=== PATIENT | female | born 1965 | race Caucasian/White ===

== ENCOUNTER 2018-11-28 12:26 | Emergency (ER) | payer BC ==
[2018-11-28 13:40] LABS: ANION GAP 9.9 mmol/L (10-20); CHLORIDE,CL 107 mmol/L (98-107); SODIUM,NA 142 mmol/L (136-145)
--- NOTE | 2018-11-28 18:07 | EDM.PDOC ---
ED HPI GENERAL MEDICAL PROBLEM - General Chief Complaint: Chest Pain Time Seen by Provider: 11/28/18 12:26 Source of Information: Reports: Patient, Family History Limitations: Reports: No Limitations - History of Present Illness INITIAL COMMENTS - FREE TEXT/NARRATIVE: presents to ER with complaints of palpitations that and chest pain that started earlier this AM. She states that the symptoms have resolved, but they came in to be evaluated. She states that she has had issues with this in the past. She was evaluated at [facility] in October for the same. She did have what sounds like a stress echo which showed evidence of some wall motion abnormality and what sounds like a high resolution CT scan of her heart and did not have any angiogram. She had had some SVT in the past with an elevated troponin, and based in the above named tests, it appears that the elevated troponin was secondary to tachycardia related ischemia. On arrival to ER, pt. states that she was feeling better, other than some fatigue. No nausea or vomiting, no shortness of breath. She was not diaphoretic. To note, pt. has a history of carotid artery stenosis (moderate) and a history of hiatal hernia which has caused her chest discomfort in the past. Onset Date: 11/28/18 Location: Reports: Chest, Generalized Quality: Reports: Burning Middle Chest Pain Score (Numeric/FACES): 2 - Related Data Allergies Allergy/AdvReac Type Severity Reaction Status Date / Time codeine Allergy Hallucinati Verified 11/28/18 13:17 ons mold Allergy Shortness Verified 11/28/18 13:17 of Breath Penicillins Allergy Cannot Verified 11/28/18 13:17 Remember Past Medical History HEENT History: Reports: Allergic Rhinitis, Glaucoma, Other (See Below) Other HEENT History: hyperopia. astigmatism Cardiovascular History: Reports: High Cholesterol, Hypertension, Other (See Below) Other Cardiovascular History: mitral valve prolapse Respiratory History: Reports: Sleep Apnea Gastrointestinal History: Reports: GERD, Irritable Bowel Syndrome, Other (See Below) Other Gastrointestinal History: Steatohepatitis. elevated LFT's Genitourinary History: Reports: Other (See Below) Other Genitourinary History: atrophic vaginitis Musculoskeletal History: Reports: Osteoarthritis Oncologic (Cancer) History: Reports: Cervix - Past Surgical History HEENT Surgical History: Reports: Tonsillectomy GI Surgical History: Reports: Cholecystectomy Musculoskeletal Surgical History: Reports: Carpal Tunnel Social & Family History - Tobacco Use Smoking Status *Q: Never Smoker - Recreational Drug Use Recreational Drug Use: No ED ROS GENERAL - Review of Systems Review Of Systems: See Below Constitutional: Reports: Fatigue. Denies: Fever, Chills, Weakness, Diaphoresis HEENT: Reports: No Symptoms Respiratory: Reports: No Symptoms Cardiovascular: Reports: Chest Pain. Denies: Dyspnea on Exertion, Edema, Lightheadedness, Orthopnea Endocrine: Reports: No Symptoms GI/Abdominal: Reports: No Symptoms : Reports: No Symptoms Musculoskeletal: Reports: No Symptoms Skin: Reports: No Symptoms Neurological: Reports: Other (hsitory of carotid artery stenosis) Psychiatric: Reports: No Symptoms Hematologic/Lymphatic: Reports: No Symptoms Immunologic: Reports: No Symptoms ED EXAM, GENERAL - Physical Exam Exam: See Below Exam Limited By: No Limitations General Appearance: Alert, WD/WN, No Apparent Distress Throat/Mouth: Normal Inspection, Normal Lips, Normal Teeth, Normal Gums, Normal Oropharynx, Normal Voice, No Airway Compromise Head: Atraumatic, Normocephalic Neck: Normal Inspection, Supple, Non-Tender, Full Range of Motion Respiratory/Chest: No Respiratory Distress, Lungs Clear, Normal Breath Sounds, No Accessory Muscle Use, Chest Non-Tender Cardiovascular: Normal Peripheral Pulses, Regular Rate, Rhythm, No Edema, No Gallop, No JVD, No Murmur, No Rub Peripheral Pulses: 4+: Radial (L), Radial (R) GI/Abdominal: Normal Bowel Sounds, Soft, Non-Tender, No Organomegaly, No Distention, No Abnormal Bruit, No Mass (Female) Exam: Deferred Rectal (Female) Exam: Deferred Back Exam: Normal Inspection, Full Range of Motion, NT Extremities: Normal Inspection, Normal Range of Motion, Non-Tender, Normal Capillary Refill, No Pedal Edema Neurological: Alert, Oriented, CN II-XII Intact, Normal Cognition, Normal Gait, Normal Reflexes, No Motor/Sensory Deficits Psychiatric: Normal Affect, Normal Mood Skin Exam: Warm, Dry, Intact, Normal Color, No Rash Lymphatic: No Adenopathy EKG INTERPRETATION Rhythm: NSR Onyx: Normal P-Wave: Present QRS: Normal ST-T: Normal QT: Normal Course - Vital Signs Last Recorded V/S: Last Vital Signs Temp 37.4 C 11/28/18 12:26 Pulse 59 L 11/28/18 12:26 Resp 16 11/28/18 12:26 BP 149/55 H 11/28/18 12:26 Pulse Ox 99 11/28/18 12:26 - Orders/Labs/Meds Orders: Active Orders 24 hr Category Date Time Status EKG Documentation Completion [RC] STAT Care 11/28/18 12:47 Active Labs: Laboratory Tests 11/28/18 11/28/18 11/28/18 Range/Units 13:04 13:04 13:04 WBC 3.9 L (4.0-10.0) x10^3/uL RBC 4.01 (4.00-5.50) x10^6/uL Hgb 12.4 (12.0-16.0) g/dL Hct 37.1 (33.0-47.0) % MCV 92.5 (78.0-93.0) fL MCH 30.9 (26.0-32.0) pg MCHC 33.4 (32.0-36.0) g/dL RDW Coeff of Patsy 13.0 (10.0-15.0) % Plt Count 137 (130-400) x10^3/uL Neut % (Auto) 52.9 (50.0-80.0) % Lymph % (Auto) 32.5 (25.0-50.0) % [place] % (Auto) 8.2 (2.0-11.0) % Eos % (Auto) 5.4 H (0.0-4.0) % Baso % (Auto) 1.0 (0.2-1.2) % PT 10.1 (9.6-11.4) SEC INR 1.0 L (2.0-3.5) Sodium 142 (136-145) mmol/L Potassium 3.9 (3.5-5.1) mmol/L Chloride 107 (98-107) mmol/L Carbon Dioxide 29 (21-32) mmol/L Anion Gap 9.9 L (10-20) mmol/L BUN 13 (7-18) mg/dL Creatinine 0.8 (0.55-1.02) mg/dL Est Cr Clr Drug Dosing TNP Estimated GFR (MDRD) > 60 Glucose 115 H (74-106) mg/dL Calcium 8.7 (8.5-10.1) mg/dL Corrected Calcium 9.26 (8.5-10.1) mg/dL Phosphorus 3.7 (2.6-4.7) mg/dL Magnesium 1.6 L (1.8-2.4) mg/dL Total Bilirubin 0.5 (0.2-1.0) mg/dL AST 37 (15-37) U/L ALT 61 H (14-59) U/L Alkaline Phosphatase 88 (46-116) U/L Troponin I < 0.017 (<=0.056) ng/mL C-Reactive Protein < 0.2 (<=0.9) mg/dL NT-Pro-B Natriuret Pep 186 H (<=125) pg/mL Total Protein 6.9 (6.4-8.2) g/dL Albumin 3.3 L (3.4-5.0) g/dL Globulin 3.6 Albumin/Globulin Ratio 0.92 TSH, Ultra Sensitive 1.949 (0.358-3.74) uIU/mL - Re-Assessments/Exams Free Text/Narrative Re-Assessment/Exam: Discussed findings with the patient. Advised admission to ER with serial troponin and EKG but patient refuses. Her troponin was negative and her EKG showed no evidence of ischemic change. Departure - Departure Time of Disposition: 13:55 Disposition: Home, Self-Care 01 Clinical Impression: Chest pain - Discharge Information Instructions: Nonspecific Chest Pain, [id number] Referrals: PCP,Unknown [Primary Care Provider] - Forms: ED Department Discharge Additional Instructions: Return to ER if you wish to be admitted, if the discomfort worsens, shortness of breath, palpitations, etc. Follow-up with cardiology regarding a holter study/possible angiogram to determine cause of symptoms. Continue with current medications. - My Orders Last 24 Hours: My Active Orders 11/28/18 12:47 EKG Documentation Completion [RC] STAT - Assessment/Plan Last 24 Hours: My Active Orders 11/28/18 12:47 EKG Documentation Completion [RC] STAT Plan: Return to ER if you wish to be admitted, if the discomfort worsens, shortness of breath, palpitations, etc. Follow-up with cardiology regarding a holter study/possible angiogram to determine cause of symptoms. Continue with current medications.
== END 2018-11-28 13:55 | disposition home or self-care (01) ==
LOC: VM.ED 12:26
DX: R07.9 Chest pain, unspecified (principal); E78.00 Pure hypercholesterolemia, unspecified; K21.9 Gastro-esophageal reflux disease without esophagitis; Z88.5 Allergy status to narcotic agent; Z88.0 Allergy status to penicillin; Z91.048 Other nonmedicinal substance allergy status
CPT/HCPCS: 36415; 80053; 83735; 83880; 84100; 84443; 84484; 85025; 85610; 86140; 93005; 99285-25

== ENCOUNTER 2023-01-04 14:53 | Emergency (ER) | payer BC ==
[2023-01-04 16:25] LABS: CORONAVIRUS COVID-19 NAA NEGATIVE (NEGATIVE)
[2023-01-04] MEDS ORDERED: Ketorolac 30 MG/ML SDV IM ONE (16:31)
== END 2023-01-04 16:45 | disposition home or self-care (01) ==
LOC: VM.ED 14:53
DX: R51.9 Headache, unspecified (principal); I10 Essential (primary) hypertension; M19.90 Unspecified osteoarthritis, unspecified site; Z88.5 Allergy status to narcotic agent; Z88.0 Allergy status to penicillin; Z91.048 Other nonmedicinal substance allergy status; Z79.82 Long term (current) use of aspirin; Z20.822 Contact with and (suspected) exposure to COVID-19
CPT/HCPCS: 0240U; 70450; 96372; 99283; 99284; J1885